=== PATIENT | male | born 1980 | race African-American/Black ===

== ENCOUNTER 2019-02-19 17:41 | Emergency (ER) | payer SELFPAY ==
[2019-02-19] MEDS ORDERED: IBUPROFEN 800 MG TAB ONE (18:05)
== END 2019-02-19 18:16 | disposition home or self-care (01) ==
LOC: EDH 17:41
DX: K08.89 Other specified disorders of teeth and supporting structures (principal); Z87.81 Personal history of (healed) traumatic fracture; Z72.0 Tobacco use

== ENCOUNTER 2019-02-23 01:34 | Emergency (ER) | payer OTHER | END 2019-02-23 01:53 | disposition home or self-care (01) | LOC: EDH 01:34 | DX: K08.89 Other specified disorders of teeth and supporting structures (principal) ==